=== PATIENT | male | born 1975 | race Asian ===

== ENCOUNTER 2019-01-01 17:01 | Observation (INO) | payer OTHER ==
[~2019-01-01] VITALS: Ht 177.8 cm; Wt 144.8 kg
[2019-01-01 17:43] VITALS: BP 144/89; TEMP 98.7; Ht 177.8 cm; Wt 144.8 kg
[2019-01-01 17:58] LABS: PLATELET COUNT 242 K/uL (142-355)
[2019-01-01] MEDS ORDERED: AMLODIPINE BESYLATE PO (18:02)
[2019-01-01] MEDS ORDERED: ALBUTEROL0.083 % (18:02)
[2019-01-01] MEDS ORDERED: CHLORTHALID25 MG PO (18:03)
[2019-01-01] MEDS ORDERED: PROAIR HFA (18:04)
[2019-01-01 19:38] VITALS: BP 138/70; TEMP 98.8
[2019-01-01 20:02] LABS: PARTIAL THROMBOPLASTIN TIME 27.4 SECONDS (24.5-33.6)
[2019-01-02 00:14] VITALS: BP 143/68; TEMP 98.5
[2019-01-02 04:00] VITALS: BP 135/61; TEMP 98.8
[2019-01-02 08:00] VITALS: BP 114/60; TEMP 98.2
[2019-01-02 09:31] LABS: POTASSIUM 3.5 mmol/L (3.6-5.2)
[2019-01-02 12:00] VITALS: BP 109/68; TEMP 98.4
== END 2019-01-02 14:15 | disposition home or self-care (01) ==
LOC: MED/SURG 17:01
PROVIDERS: ADMIT Family Medicine
DX: R07.89 Other chest pain (principal); G47.33 Obstructive sleep apnea (adult) (pediatric); I10 Essential (primary) hypertension; M81.8 Other osteoporosis without current pathological fracture; E05.80 Other thyrotoxicosis without thyrotoxic crisis or storm; E66.8 Other obesity; J45.998 Other asthma; E87.6 Hypokalemia
CPT/HCPCS: 80053; 80061; 82550; 82553; 83735; 84100; 84484; 85027; 85610; 85730; 93005; 94640; 94664; 94760; 99220; G0378; G0379; J1650; J2550; J3490

== ENCOUNTER 2019-12-13 12:36 | Outpatient (CLI) | payer OTHER ==
[~2019-12-13 12:36] MED LIST: ALBUTEROL0.083 %; AMLODIPINE BESYLATE PO; CHLORTHALID25 MG PO; PROAIR HFA
== END 2019-12-13 13:02 | disposition short-term general hospital (02) ==
LOC: AMB 12:36
DX: R10.31 Right lower quadrant pain (principal); Z98.890 Other specified postprocedural states; R11.0 Nausea
CPT/HCPCS: A0425; A0427

== ENCOUNTER 2020-08-16 17:06 | Emergency (ER) | payer OTHER ==
[~2020-08-16] VITALS: Ht 177.8 cm; Wt 149.7 kg
[2020-08-16 17:43] LABS: PLATELET COUNT 238 K/uL (142-355)
[2020-08-16 17:45] LABS: POTASSIUM 3.9 mmol/L (3.6-5.2); SODIUM 137 mmol/L (136-145)
[2020-08-16 17:56] LABS: PARTIAL THROMBOPLASTIN TIME 27.2 SECONDS (24.5-33.6)
[2020-08-16 18:14] VITALS: BP 140/82; TEMP 98
== END 2020-08-16 18:19 | disposition home or self-care (01) ==
LOC: ED 17:06
PROVIDERS: Hospitalist
DX: R07.89 Other chest pain (principal); K21.9 Gastro-esophageal reflux disease without esophagitis; J45.998 Other asthma
CPT/HCPCS: 36415; 80053; 82550; 83880; 84484; 85027; 85379; 85610; 85730; 93005; 96374; 96375; 99284; J1885; J2405

== ENCOUNTER 2020-10-12 19:15 | Emergency (ER) | payer OTHER ==
[~2020-10-12] VITALS: Ht 177.8 cm; Wt 149.7 kg
[2020-10-12 19:25] VITALS: TEMP 98.5
[2020-10-12 20:15] LABS: PLATELET COUNT 236 K/uL (142-355)
[2020-10-12 23:15] VITALS: BP 152/78
== END 2020-10-12 23:15 | disposition home or self-care (01) ==
LOC: ED 19:15
PROVIDERS: Emergency Medicine Emergency Medical Services
DX: J45.909 Unspecified asthma, uncomplicated (principal); Z20.828 Contact with and (suspected) exposure to other viral communicable diseases
CPT/HCPCS: 36415; 85027; 87502; 87635; 87651; 94664; 96360; 96365; 96366; 96375; 99284; J1956; J2930; U0003

== ENCOUNTER 2020-10-15 15:11 | Emergency (ER) | payer OTHER ==
[~2020-10-15] VITALS: Ht 177.8 cm; Wt 149.7 kg
[2020-10-15 15:25] VITALS: TEMP 97.5
[2020-10-15 15:57] LABS: POTASSIUM 4.8 mmol/L (3.6-5.2); SODIUM 135 mmol/L (136-145)
[2020-10-15 16:07] LABS: PARTIAL THROMBOPLASTIN TIME 25.7 SECONDS (24.5-33.6); PLATELET COUNT 217 K/uL (142-355)
[2020-10-15 17:41] VITALS: BP 160/89
== END 2020-10-15 17:42 | disposition home or self-care (01) ==
LOC: ED 15:11
PROVIDERS: Hospitalist
DX: R07.89 Other chest pain (principal); I10 Essential (primary) hypertension; J40 Bronchitis, not specified as acute or chronic
CPT/HCPCS: 36415; 80053; 82550; 83880; 84484; 85027; 85379; 85610; 85730; 93005; 96374; 96375; 99284; J0360; J1885; J1940; J2930; J3490

== ENCOUNTER 2020-12-26 18:46 | Observation (INO) | payer OTHER ==
[2020-12-26] VITALS (9 sets, daily range): BP systolic 138–169; BP diastolic 90–97; TEMP 98.5–98.8; Ht 177.8 cm; Wt 152.2 kg
[~2020-12-26] VITALS: Ht 177.8 cm; Wt 152.2 kg
[2020-12-26 19:19] LABS: PLATELET COUNT 203 K/uL (142-355)
[2020-12-26 19:27] LABS: POTASSIUM 3.7 mmol/L (3.6-5.2); SODIUM 139 mmol/L (136-145)
[2020-12-26 19:36] LABS: PARTIAL THROMBOPLASTIN TIME 26.3 SECONDS (24.5-33.6)
[2020-12-26] MEDS ORDERED: FURO20TA67 PO (21:48)
[2020-12-26] MEDS ORDERED: CARV6.25 PO (21:49)
[2020-12-26] MEDS ORDERED: VALSARTAN160 MG PO (21:49)
[2020-12-26] MEDS ORDERED: LIPITOR40 MG PO (21:50)
[2020-12-26] MEDS ORDERED: K-TAB20 MEQ PO (21:51)
[2020-12-27] VITALS: BP 142/78; TEMP 98.4
[2020-12-27 04:00] VITALS: BP 117/56; TEMP 98.2
[2020-12-27 08:00] VITALS: BP 114/53; TEMP 98
[2020-12-27 12:00] VITALS: BP 103/59; TEMP 98.3
[2020-12-27] MEDS ORDERED: PANTOPRAZOLE 40MG TA PO (13:13)
== END 2020-12-27 14:10 | disposition home or self-care (01) ==
LOC: ED 18:46 → MED/SURG 20:00
PROVIDERS: ADMIT Hospitalist; ATTEND Internal Medicine
DX: R07.89 Other chest pain (principal); K21.9 Gastro-esophageal reflux disease without esophagitis; I10 Essential (primary) hypertension; E78.49 Other hyperlipidemia; I50.9 Heart failure, unspecified; I51.7 Cardiomegaly; G47.33 Obstructive sleep apnea (adult) (pediatric)
CPT/HCPCS: 36415; 80053; 81000; 82550; 82553; 83880; 84484; 85027; 85610; 85730; 87635; 93005; 96375; 99220; 99284; G0378; J1650; J2405; U0003

== ENCOUNTER 2021-04-14 19:28 | Emergency (ER) | payer OTHER ==
[~2021-04-14] VITALS: Ht 177.8 cm; Wt 149.7 kg
[~2021-04-14 19:28] MED LIST changes: +CARV6.25 PO; +FURO20TA67 PO; +K-TAB20 MEQ PO; +LIPITOR40 MG PO; +PANTOPRAZOLE 40MG TA PO; +VALSARTAN160 MG PO
[2021-04-14 20:36] LABS: PLATELET COUNT 235 K/uL (142-355)
[2021-04-14 20:43] LABS: POTASSIUM 3.9 mmol/L (3.6-5.2)
[2021-04-14 21:24] VITALS: BP 128/75; TEMP 97.8
== END 2021-04-14 21:24 | disposition home or self-care (01) ==
LOC: ED 19:28
PROVIDERS: Family Medicine
DX: M62.82 Rhabdomyolysis (principal); E86.0 Dehydration
CPT/HCPCS: 36415; 80053; 82550; 82553; 85027; 96360; 99284